=== PATIENT | male | born 1975 | race Two or more races ===

== ENCOUNTER → 2024-11-02 | Outpatient (CLI) | payer MEDICAID, SELFPAY ==
--- NOTE | 2024-11-02 14:00 | XR_ITS ---
Examination: CT lower extremities bilateral, without contrast. 2-D sagittal reconstructions. 2-D coronal reconstructions. 3-D reconstructions. Date and time of exam:November 02, 2024 1634 hours INDICATIONS: Right hip osteoarthritis and pain 5 years CTDI: vol (mGy):10.1 DLP: (mGycm):349 Technique: Multiple 1.25 mm axial sections of the bilateral lower extremities without intravenous contrast have been obtained. 2-D sagittal and coronal reconstructions have been obtained. 3-D reconstructions have been obtained. Low dose protocols were performed. One or more of the following dose reduction techniques were used; automated exposure control, adjustment of the mA and/or KV according to patient size, use of iterative reconstruction technique. Findings: Mild osteopenia Total left hip arthroplasty with satisfactory alignment Advanced right hip osteoarthritis with subarticular cyst formation right femoral head Moderate narrowing medial joint spaces greater on the left Chronic mild lateral subluxation patella bilaterally Moderate narrowing left lateral patellofemoral joint IMPRESSION: Advanced right hip osteoarthritis with subarticular cyst formation right femoral head, avascular necrosis right femoral head not excluded
== END | disposition home or self-care (01) ==
PROVIDERS: Referring Provider Orthopaedic Surgery Adult Reconstructive Orthopaedic Surgery; Visit Provider Orthopaedic Surgery Adult Reconstructive Orthopaedic Surgery
DX: M16.11 Unilateral primary osteoarthritis, right hip (principal); M25.851 Other specified joint disorders, right hip
CPT/HCPCS: 72192; 73700

== ENCOUNTER 2024-11-03 09:16 | Outpatient (AMB) | payer MEDICAID, SELFPAY ==
--- NOTE | 2024-11-03 09:26 | PD.ORTHCLVIS ---
Vital signs 11/03/24 09:28 Height 1.78 m Height Method Stated Weight 112.689 kg Weight Measurement Method Standing Scale BMI 35.5 BP 160/101 H Blood Pressure Source Automatic Cuff Blood Pressure Location Left Upper Arm Position Sitting Respiration 19 Pulse 104 H Pulse Source Monitor Temp 96.9 F Temp Source Temporal Artery Scan Pulse Oximetry (%) 90 L Oxygen Delivery Method Room Air Med/Allergies Allergies & Medications Allergies No Known Allergies Allergy (Verified 11/03/24 09:29) Medication Reconciliation ibuprofen 800 mg tablet 800 mg PO Q8HR PRN Pain 05/04/24 [History Confirmed 11/03/24] lisinopril 10 mg tablet 10 mg PO QDAY 05/04/24 [History Confirmed 11/03/24] simvastatin 20 mg tablet 20 mg PO DAILY 05/04/24 [History Confirmed 11/03/24] sitagliptin phosphate 50 mg-metformin 1,000 mg tablet (Janumet) 1 tab PO BID 05/04/24 [History Confirmed 11/03/24] acetaminophen 500 mg tablet (Acetaminophen Extra Strength) 1,000 mg (2 x 500 mg) PO Q6H PRN pain #90 tabs 05/06/24 [Rx Confirmed 11/03/24] aspirin 81 mg tablet,delayed release 81 mg PO BID #60 tabs 05/06/24 [Rx Confirmed 11/03/24] doxycycline hyclate 100 mg tablet 100 mg PO BID #14 tabs 05/06/24 [Rx Confirmed 11/03/24] gabapentin 300 mg capsule 300 mg PO .qhs #30 caps 05/06/24 [Rx Confirmed 11/03/24] oxycodone 5 mg tablet 5 mg PO Q6H PRN pain #28 tabs 05/06/24 [Rx Confirmed 11/03/24] sennosides 8.6 mg-docusate sodium 50 mg tablet (Senna-S) 1 tab-cap PO QDAY #30 tabs 05/06/24 [Rx Confirmed 11/03/24] Office Procedures GNS Level of Care Nursing/Assessment Patient Status: Established Patient Nursing Assessment/Reassesment: Medication Reconciliation, Update PMH in EMR and Vital Signs Coordination of Care: Complex Care and Chronic Disease 1-5, Education Complex Pt/Fam, Consent,records obtained, informed consent, Results/Orders obtained and Staff clarify orders Established Patient Charge Established Patient Point Assignment: 95 Established Patient Point Charge: EP Level 3 (80-115) MA Intake Visit Data Collection New Patient or Established: Established Patient (seen at [facility] within 3 years) Reason for Visit:: PRE OP RIGHT HIP REPLACEMENT Seen by Clinical Staff ONLY (RN/MA): No Crown Buffer Required: No PCP or OBGYN visit in last 3 months: Yes Hx Now: No Do You Feel Safe at Home: Yes Authorities Contacted: N/A Questionairres Past Medical History Past Medical History Have you ever been diagnosed with any of the following: Neurological Problems Seizures: No Cardiology Problems Hypercholesterolemia: Yes Congestive Heart Failure: No Hypertension: Yes Respiratory Problems Chronic Obstructive Pulmonary Disease (COPD): No Sleep Apnea: Yes (waiting on a Cpap) Smoking: No Smoking Cessation Counseling: No Smoking Exposure: No Tobacco Use: No Clubbing: No Exposure to Respiratory Irritants: No Intubation: No Stomache/Intestinal Problems Diverticulitis: Yes Obesity: Yes Genital/Urinary Problems Renal Disease: No Musculoskeletal Problems Arthritis: Yes Head,Eye,Nose,Throat Problems Cataracts: Yes (right) Endocrine Problems Diabetes Mellitus Type 1: No Diabetes Mellitus Type 2: Yes Other Problems Hospitalization: Yes (surgery colon resection) Shingles: No Blood Transfusions: No Blood Transfusion Reaction: No Anesthesia Reactions: No Clostridium Difficile: No Cancer: No Subjective Visit Visit for: follow up visit (PRE OP) and hip (RIGHT) Immunization / Flu Flu Vaccine in the Last 12 Months: No Flu Vaccine Exclusion Criteria: No Exclusion Criteria Pain Pain level (0-10): 9 Pain duration: CONSTANT Pain location: inside (medial) Pain quality: aching Pain timing: night, increases with activity and stairs Associated signs & symptoms: other (specify) Ambulatory data Ambulatory device: none Treatments Improvement with previous injections: No Improvement with PT: No Improvement with NSAIDS: no Review of Systems Review of Systems: All systems negative unless otherwise noted in HPI.
[2024-11-03 09:28] VITALS: BP 160/101; PULSE 104; RESP 19; TEMP 36.1; O2SAT 90; BMI 35.5
--- NOTE | 2024-11-13 09:03 | ORTHONT_ITS ---
Patient Name: VANESSA OH Jr. : 1975 Subjective Subjective Brief History: left total hip replacement Narrative: Patient is doing well From his left total Hip replacement. He is doing well with the left side and also get his right side done. He is set up for surgery in 1 week Exam Additional findings Additional findings: NAD SILT+DP/PT +EHL/FHL/PF/DF Dressing C/D/I Is tender to palpation over the right hip. He has pain with logroll. Positive DP PT pulses. Leg lengths are equal Assessment & Plan Diagnosis (1) Status post left hip replacement: Status: Acute Assessment Additional comments: Patient is doing well Status post left total hip replacement. We will set him up for his right side in 4 weeks. He has minimal pain on the left. The right side is affecting his quality life and happiness. We will do this with a lateral approach The nature and purpose of the total hip replacement, alternative method(s) of treatment, the material risks involved, and the possibility of complications were fully explained to the patient. The patient does NOT have any of the following contraindications to DEX: - Active infection of the hip joint, OR - Active systemic bacteremia, OR - Active skin infection or open wound at surgical site, OR - Neuropathic arthritis, OR - Severe, rapidly progressive neurological disease, OR - Severe medical condition that makes risks of the surgery outweigh the potential benefit The patient was told the most common risks and complications associated with a total hip replacement include, but are not limited to: blood clots in the leg, fatal pulmonary embolism, dislocation of the prosthesis, intraoperative and postoperative fractures of the femur or acetabulum, infection, failure of the prosthesis or grafting materials, complications from anesthesia, reactions to blood transfusions, postoperative leg length inequality, instability of the hip replacement, nerve damage or injury, vascular injury, delayed wound healing, infection, other injury or even . In addition, there are risks associated with anesthesia given during this operation. Also, the patient was told that after undergoing a total hip replacement there may still be persistent pain or disability. The patient was informed that the success of this operation in part depends upon the mechanical devices which are going to be implanted and that these devices can fail or malfunction, and may need to be repaired or replaced and there are no guarantees as to the longevity of this device or its parts and that it or its parts could fail prematurely. The patient was also notified that during the course of surgery, there may be a need to use bone graft from donors, and that any bone graft used will be carefully screened for communicable diseases, including AIDS, hepatitis, Jose-Creutzfeldt, or other diseases, but despite the screening procedures, there is a small chance that they could contract one of these diseases. Finally, the patient was asked to follow completely and fully with all advice and recommended treatments, and that recovery and ultimate outcome are affected by their compliance with recommended treatment. We discussed the risks, benefits and treatment alternatives, and the patient is interested in proceeding with surgery. We will try to set this up as expeditiously as possible. Documentation for date of: 11/03/24 SHARMILA
== END 2024-11-03 09:42 | disposition home or self-care (01) ==
LOC: HODSRG 09:16
PROVIDERS: PCP Registered Nurse; Referring Provider Registered Nurse; Supervising Provider Orthopaedic Surgery Adult Reconstructive Orthopaedic Surgery; Visit Provider Orthopaedic Surgery Adult Reconstructive Orthopaedic Surgery
DX: Z96.642 Presence of left artificial hip joint (principal); M25.562 Pain in left knee
CPT/HCPCS: 99213; G0463

== ENCOUNTER 2024-11-12 11:53 | Inpatient (IN) | payer MEDICAID, SELFPAY ==
--- NOTE | 2024-11-03 09:42 | CONPN_ITS ---
Subjective Subjective Brief History: left total hip replacement Narrative: Patient is doing well From his left total Hip replacement. He is doing well with the left side and also get his right side done. He is set up for surgery in 1 week Exam Additional findings Additional findings: NAD SILT+DP/PT +EHL/FHL/PF/DF Dressing C/D/I Is tender to palpation over the right hip. He has pain with logroll. Positive DP PT pulses. Leg lengths are equal Assessment & Plan Diagnosis (1) Status post left hip replacement: Status: Acute Assessment Additional comments: Patient is doing well Status post left total hip replacement. We will set him up for his right side in 4 weeks. He has minimal pain on the left. The right side is affecting his quality life and happiness. We will do this with a later al approach The nature and purpose of the total hip replacement, alternative method(s) of treatment, the material risks involved, and the possibility of complications were fully explained to the patient. The patient does NOT have any of the following contraindications to DEX: - Active infection of the hip joint, OR - Active systemic bacteremia, OR - Active skin infection or open wound at surgical site, OR - Neuropathic arthritis, OR - Severe, rapidly progressive neurological disease, OR - Severe medical condition that makes risks of the surgery outweigh the potential benefit The patient was told the most common risks and complications associated with a total hip replacement include, but are not limited to: blood clots in the leg, fatal pulmonary embolism, dislocation of the prosthesis, intraoperative and postoperative fractures of the femur or acetabulum, infection, failure of the prosthesis or grafting materials, complications from anesthesia, reactions to blood transfusions, postoperative leg length inequality, instability of the hip replacement, nerve damage or injury, vascular injury, delayed wound healing, infection, other injury or even . In addition, there are risks associated with anesthesia given during this operation. Also, the patient was told that after undergoing a total hip replacement there may still be persistent pain or disability. The patient was informed that the success of this operation in part depends upon the mechanical devices which are going to be implanted and that these devices can fail or malfunction, and may need to be repaired or replaced and there are no guarantees as to the longevity of this device or its parts and that it or its parts could fail prematurely. The patient was also notified that during the course of surgery, there may be a need to use bone graft from donors, and that any bone graft used will be carefully screened for communicable diseases, including AIDS, hepatitis, Jose-Creutzfeldt, or other diseases, but despite the screening procedures, there is a small chance that they could contract one of these diseases. Finally, the patient was asked to follow completely and fully with all advice and recommended treatments, and that recovery and ultimate outcome are affected by their compliance with recommended treatment. We discussed the risks, benefits and treatment alternatives, and the patient is interested in proceeding with surgery. We will try to set this up as expeditiously as possible. Documentation for date of: 11/03/24
--- NOTE | 2024-11-03 09:42 | PD.SUROPNT ---
Date of Procedure 11/11/24 Pre Op Diagnosis right hip osteoarthritis Post Op Diagnosis right hip osteoarthritis Procedure right total hip replacement Findings full thickness cartilage loss and osteophytes Procedure Description Indications: The patient is a 49y.o. year-old with a longstanding history of right hip pain. After considering the patient's condition and the impact of their hip injury on the patient's quality of life and risks of nonoperative treatment, total hip replacement was offered as a reasonable option. Prior to the surgery I discussed the nature of the hip replacement surgery including alternatives to surgery and the purpose of, and indications for proceeding with surgery. I discussed that this surgery is a shared decision between the patient and the surgeon. Risks and benefits and alternatives of the procedure have been explained to the patient and their family. Anesthesia complications and risks include but are not limited to stroke, heart attack, and . The surgical risks include but are not limited to infection, instability/dislocation, bleeding, nerve and blood vessel injury, deep vein thrombosis, pulmonary embolus, stiffness, pain, scar, need for reoperation, leg length discrepancy, thigh numbness, weakness, and mechanical failure of the implant including loosening, metal complications, metal allergy, wear or breakage. I discussed the expected recovery from surgery and the importance of compliance with all our pre and post-operative recommendations in order to maximize the recovery. The patient/family understands the risks of loss of life, loss of limb and, loss of function and wishes to proceed. They understand they are at increased risk for infection given their history of smoking. A signed and witnessed consent was obtained and placed in the chart. Patient Positioning: The patient was placed in the lateral decubitus position on a standard table using a pegboard. An axillary role was placed. All extremities were padded to ensure adequate protection. A link catheter was aseptically inserted. Time Out: A timeout was performed prior to the procedure which verified the correct patient, positioning, operation to be performed, operative site, antibiotics, allergies, imaging, and any other concerns. All parties were in agreement. Procedure in detail: The operative site was cleaned and draped in the usual sterile fashion. A final timeout was performed with all parties in agreement. We first placed pins and an array in the pelvis above the ASIS. A modified anterolateral approach to the hip was utilized. A 16cm skin incision was made centered over the greater trochanter in line with the femur. This was taken down through skin and subcutaneous tissue using a 10 blade. Bleeding was controlled using electrocautery. The fascia was identified and split in line with the femur. The charnley retractor was then placed. The abductor insertion was identified and a split made in the anterior 1/3 of the tendon proximally. Retractors were placed and the gluteus minimus was visualized. A capsulotomy was made down to the femoral neck anterior to the minimus. A split was then made in the anterior 1/3 of the vastus lateralis. A retractor was then placed anterior to the femoral shaft, the tendon was tagged with #1 ethibond sutures and a U-shaped split was made in the anterior 1/3 of the abductor tendon being careful to leave enough tendon to re-attach. The hip was then gently externally rotated as the anterior tissues were taken down with the tendon and capsule as one sleeve. Once the anterior tissue had been release off of bone a bone hook was placed and the hip was gently dislocated. Retractors were placed around the femoral neck and the femoral neck osteotomy was then made to freshen up the cut. The femoral head removed. The leg was then placed in extension and retractors were placed anterior and posterior to the acetabulum. The inferior capsule was release to improved visualization and the labrum and osteophytes around the acetabulum were removed. The acetabulum was then reamed to bleeding bone with adequate wall coverage using the robot. A Screw was then placed followed by the liner which was impacted and confirmed to be seated. We then turned our attention to the femur. The leg was brought into external rotation and the femur was exposed. A canal finder was used followed by a box osteotomy and the femur was broached sequentially. The trial stem was then left in and the hip was trialed using various neck offsets and head sizes until the appropriate size was found based on leg length, stability. Once we were satisfied with the construct a cross-table AP pelvis radiograph was obtained to confirm appropriate positioning and sizing. The hip was then dislocated and the trials were then removed and the final stem impacted into placed. The hip was then again trialed and the appropriate head size identified. The bergman taper was then cleaned and dried and the final head impact into place and tested. The acetabulum was irrigated and confirmed to be free of debris. The hip was then reduced and taken through range of motion. The hip was stable in abduction and external rotation, adduction and external rotation, flexion past 90 degrees and internal rotation past 20 degrees. It did not sublux throughout range of motion and no impingement was detected. Leg lengths were appropriately restored based on preoperative leg lengths and intraoperative testing. . The hip was then copiously irrigated with dilute betadine followed by normal saline. The hip was then injected with the cocktail per protocol. All arrays and the femoral checkpoint was removed. The hip was the closed in layers. The abductor tendon was closed with #1 ethibond. The fascia was closed with 0 Vicryl followed by an 0 V-lock. . The deep layer was closed with 0-Vicryl and the subcutaneous layer by a 2-0 Vicryl. The subdermal layer was closed with a 3-0 monocryl. The skin was then cleaned and dried and steri-strips placed followed by a sterile dressing. The drapes were then taken down and the patient was placed supine. Leg lengths were confirmed to be appropriate and the patient's lower extremities were warm and well perfused with brisk capillary refill and palpable pulses. The patient was then awoken, transferred to the [facility] and taken to the PACU in stable condition. They tolerated the procedure well. The patient's family/caregiviers were made aware of their condition. Postoperative plan Activity: WBAT, no hip precautions , no active hip abduction DVT Prophylaxis: aspirin 81mg BID Antibiotics: Standard postoperative antibiotics x 24 hours Implants: [place] 56 cup, 4 HI insignia, 1 screw, standard liner, 40+4 head Anesthesia GETA Implants ernst Pathology / specimen None Pathology comment: none Estimated Blood Loss 150 Disposition observation Surgeon Josef Riddle MD Surgical Staff Operation Date: 11/11/24 07:30 <No data on this case meets the specified criteria>
[2024-11-10 07:33] VITALS: BMI 36.1
[2024-11-10 08:43] LABS: Anion Gap 9 (7-16); Blood Urea Nitrogen 15 mg/dL (9-23); Carbon Dioxide 26.3 mMol/L (20.0-31.0); Chloride 101 mMol/L (98-107); Creatinine (Component) 0.8 mg/dL (0.6-1.3); Potassium 4.3 mMol/L (3.4-5.1); Sodium 136 mMol/L (136-145)
[2024-11-10 08:44] LABS: Alanine Aminotransferase 25 U/L (10-49); Albumin, Serum 4.9 gm/dL (3.5-5.0); Albumin/Globulin Ratio 1.6 (1.2-2.2); Alkaline Phosphatase 122 U/L (46-116); Aspartate Amino Transferase 16 U/L (0-34); BUN/Creatinine Ratio 19 Ratio (12-20); Bilirubin,Total 0.3 mg/dL (0.3-1.2); Calcium 9.8 mg/dL (8.3-10.6); Calcium (Corrected) 9.8 mg/dL (8.5-10.1); Estimated Creatinine Clearance 138.8 mL/min (>60); Glucose 167 mg/dL (74-106); Osmolality,Calculated 276 (275-295); Total Protein 7.9 gm/dL (5.7-8.2); eGFR > 60 See Note
[2024-11-10 09:03] LABS: Basophils # (Auto) 0.1 Thou/mm3 (0.0-0.2); Basophils % (Auto) 1 % (0-2.5); Eosinophils # (Auto) 0.3 Thou/mm3 (0.0-0.5); Eosinophils % (Auto) 2 % (0-10); Hematocrit 51.6 % (41.0-53.0); Hemoglobin 17.1 g/dL (13.5-16.0); Immature Granulocytes % (Auto) 1 % (0-0); Immature Granulocytes Auto 0.06 Thou/mm3 (0.00-0.00); Lymphocytes # (Auto) 2.8 Thou/mm3 (1.0-4.8); Lymphocytes % (Auto) 26 % (10-50); Mean Corpuscular HGB Conc 33.1 g/dl (31.0-37.0); Mean Corpuscular Hemoglobin 27.8 pg (25.0-35.0); Mean Corpuscular Volume 84 fL (80-100); Monocytes # (Auto) 0.8 Thou/mm3 (0.0-0.8); Monocytes % (Auto) 7 % (0-12); Neutrophils % (Auto) 64 % (37-80); Nucleated Red Blood Cell % 0 /100 WBC (0); Platelet Count 363 Thou/mm3 (140-440); RDW Standard Deviation 41.2 fL (35.1-43.9); Red Blood Count 6.15 Miln/mm3 (4.50-5.90)
[2024-11-10 09:10] LABS: Partial Thromboplastin Time 29.3 Seconds (22.0-36.0); Prothrombin Time 10.8 Seconds (9.0-12.2)
--- NOTE | 2024-11-10 14:11 | SUR.PREOP ---
WBC 11.0, Dr Riddle notified and ok to proceed with surgery.
[2024-11-11] VITALS (16 sets, daily range): BP systolic 107–149; BP diastolic 71–91; PULSE 72–105; RESP 12–20; TEMP 36.1–36.8; O2SAT 92–100; BMI 35.6
--- NOTE | 2024-11-11 06:52 | XR_ITS ---
Examination: Right hip single view TECHNIQUE: AP right hip crosstable lateral single view Exam date and time: November 11, 2024 0933 hours INDICATIONS: Total right hip arthroplasty. Satisfactory alignment No fracture IMPRESSION: Total right hip arthroplasty with satisfactory alignment
[2024-11-11] MEDS: ACETAMINOPHEN 325 MG TABLET 650 MG PO (07:24)
[2024-11-11] MEDS: PREGABALIN 75 MG CAPSULE PO (07:24)
[2024-11-11] MEDS: MELOXICAM 7.5 MG TABLET PO ×2 (07:24→20:55)
[2024-11-11] MEDS: RINGERS LACTATED 1000 ML 1,000 ML 20 ML IV (07:25)
--- NOTE | 2024-11-11 10:18 | XR_ITS ---
Examination: AP pelvis single view Technique one AP portable supine pelvis single view Exam date and time: November 11, 2024 10:59 AM INDICATIONS: Postop right hip replacement FINDINGS: Total right hip arthroplasty. Satisfactory alignment Total left hip arthroplasty with satisfactory alignment No fracture IMPRESSION: Total right hip arthroplasty with satisfactory alignment
--- NOTE | 2024-11-11 10:40 | SUR.PHASEI ---
1040 Patient arrived to recovery resting comfortably in bed, sleeping and able to arouse with verbal prompting, then falls back asleep, on oxygen 4L via oxy mask, breathing unlabored, vital signs stable, denies pain, dressing intact to right hip; prineo, telfa, abd, medipore tape, no bleeding noted, bilateral dorsalis pedis pulses present when palpated, patient has good circulation to right lower extremity; skin color normal for patient and warm to touch, lung sounds clear upon auscultation, report received from Dr. Esteves and Syed TREJO
--- NOTE | 2024-11-11 11:02 | SUR.PHASEI ---
1102 XRAY complete per MD order
--- NOTE | 2024-11-11 11:50 | SUR.PHASEII ---
patient at bedside quickly visiting her , and states she had to go back to work, will update with changes or when her get a medsurg room
--- NOTE | 2024-11-11 12:02 | SUR.PHASEII ---
patient sitting up eating his lunch tray
[2024-11-11] MEDS: ACETAMINOPHEN 500 MG TABLET 1000 MG PO ×2 (12:06→18:07)
--- NOTE | 2024-11-11 13:32 | SUR.PHASEII ---
1317 Report given to Ivory TREJO, patient meets discharge criteria from recovery, awake and talking with staff, breathing unlabored, vital signs stable, denies pain, dressing intact; no bleeding noted, denies nausea. 1330 Patients called to notify of med-surg room [id number], states she would come see him soon. 1332 Patient transported via bed to room 372 without incident, patient has call light in reach and began eating the rest of his lunch tray when he arrived.
[2024-11-11] MEDS: ceFAZolin/D5W 2 GM IV 2 GM/100 ML BAG IV (17:10)
[2024-11-11] MEDS: ASPIRIN EC 81 MG TABEC PO (20:56)
--- NOTE | 2024-11-11 22:44 | PC.NURSE ---
called RT notified re pt uses cpap at home but not available with pt at this time. Pt lives in [place], [place]. Was on 5L/min via oxymask right now but per pt needs more O2. rn will call Dr. Riddle for cpap orders.
[2024-11-12] VITALS (9 sets, daily range): BP systolic 120–143; BP diastolic 76–96; PULSE 73–116; RESP 16–96; TEMP 36.2–37.5; O2SAT 95–98; BMI 13.0
[2024-11-12] MEDS: ceFAZolin/D5W 2 GM IV 2 GM/100 ML BAG IV ×3 (00:23→15:50)
[2024-11-12] MEDS: ACETAMINOPHEN 500 MG TABLET 1000 MG PO ×3 (00:27→17:04)
[2024-11-12] MEDS: oxyCODONE HCL 5 MG IR TAB PO (06:39)
[2024-11-12] MEDS: ASPIRIN EC 81 MG TABEC PO ×2 (08:21→20:19)
[2024-11-12] MEDS: PANTOPRAZOLE INJ 40 MG VIAL IV (08:21)
--- NOTE | 2024-11-12 13:38 | CHAP ---
10:30 AM Visited by spiritual care volunteer Provided prayer for Patient.
--- NOTE | 2024-11-12 15:55 | PC.SS ---
SS met with patient regarding his d/c plan. Pt is alert/oriented. Pt was admitted for RT HIP [id number]. Pt confirmed demographic and contact information is correct on facesheet. Pt resides with and both parents. Prior to being hospitalized pt ambulated independently without assistance or DME. Pt was also ok with all ADLs. Pt states he has a front wheel walker at home. Patient?s pharmacy of choice is [facility] in [place]. Pt named his , medical decision maker if unable. Patient?s choice is to return home upon d/c. D/C plan: Return home Next of Kin: , phone# [phone] PCP: Dr. Arelis Stafford from [facility] in [place] Address: Correct on facesheet
--- NOTE | 2024-11-12 16:21 | PC.SS ---
SS was informed by bedside nurseMary pt is not discharging today. Pt is on IV antibiotic and controlling his pain.
--- NOTE | 2024-11-12 19:38 | PD.ORTHPN ---
Subjective Subjective Brief History: left total hip replacement Narrative: Patient doing well. His heart rate is in low 100s similar to last surgery. Exam Vital Signs Temp Pulse Resp BP Pulse Ox O2 Del Method O2 Flow Rate 97.2 F 98 18 128/83 98 Room Air 4 11/12/24 16:00 11/12/24 16:00 11/12/24 16:00 11/12/24 16:00 11/12/24 16:00 11/12/24 16:00 11/11/24 20:00 FiO2 30 11/12/24 01:50 Additional findings Additional findings: c Objective - Ortho Labs 11/10/24 07:57 11/10/24 07:57 Assessment & Plan Diagnosis (1) History of total right hip arthroplasty: Status: Acute Assessment Additional comments: Patient is a 49yo male s/p R DEX. His HR is in low 100s and we will thus continue to monitor him. He is not safe for discharge currently. We will work on his pain control. His heart rate was during last surgery as well. - dvt ppx with aspirin - pain control - pt/ot
[2024-11-12] MEDS: MELOXICAM 7.5 MG TABLET PO (20:19)
[2024-11-13] VITALS: BP 134/83; PULSE 102; RESP 17; TEMP 36.3; O2SAT 98
[2024-11-13] MEDS: ceFAZolin/D5W 2 GM IV 2 GM/100 ML BAG IV ×2 (00:49→08:18)
[2024-11-13] MEDS: ACETAMINOPHEN 500 MG TABLET 1000 MG PO ×2 (00:49→05:06)
[2024-11-13 04:00] VITALS: BP 126/76; PULSE 98; RESP 17; TEMP 36.8; O2SAT 99
[2024-11-13 08:00] VITALS: BP 123/83; PULSE 105; RESP 18; TEMP 36.5; O2SAT 93
[2024-11-13] MEDS: PANTOPRAZOLE INJ 40 MG VIAL IV (08:18)
[2024-11-13] MEDS: ASPIRIN EC 81 MG TABEC PO (08:18)
--- NOTE | 2024-11-13 09:11 | PC.SS ---
Follow up note: Pt is working with PT. Pt is on IV antibiotic. Pt will return home upon dc.
[2024-11-13 09:42] LABS: Basophils # (Auto) 0.1 Thou/mm3 (0.0-0.2); Basophils % (Auto) 1 % (0-2.5); Eosinophils # (Auto) 0.1 Thou/mm3 (0.0-0.5); Eosinophils % (Auto) 1 % (0-10); Hematocrit 33.9 % (41.0-53.0); Hemoglobin 11.5 g/dL (13.5-16.0); Immature Granulocytes % (Auto) 1 % (0-0); Immature Granulocytes Auto 0.08 Thou/mm3 (0.00-0.00); Lymphocytes # (Auto) 2.5 Thou/mm3 (1.0-4.8); Lymphocytes % (Auto) 18 % (10-50); Mean Corpuscular HGB Conc 33.9 g/dl (31.0-37.0); Mean Corpuscular Hemoglobin 28.6 pg (25.0-35.0); Mean Corpuscular Volume 84 fL (80-100); Monocytes # (Auto) 1.2 Thou/mm3 (0.0-0.8); Monocytes % (Auto) 8 % (0-12); Neutrophils # (Auto) 9.8 Thou/mm3 (1.8-7.7); Neutrophils % (Auto) 71 % (37-80); Nucleated Red Blood Cell % 0 /100 WBC (0); Platelet Count 260 Thou/mm3 (140-440); RDW Standard Deviation 42.6 fL (35.1-43.9); Red Blood Count 4.02 Miln/mm3 (4.50-5.90); White Blood Count 13.8 Thou/mm3 (3.8-10.6)
[2024-11-13 10:53] VITALS: PULSE 100; RESP 18; RESP 95
--- NOTE | 2024-11-13 11:20 | CHAP ---
Patient was visited by the Spiritual Care Volunteer who prayed for them. (Volunteer was in the hospital from 10:10-11:20).
[2024-11-13 12:00] VITALS: BP 130/86; PULSE 109; RESP 18; TEMP 36.2; O2SAT 96
== END 2024-11-13 13:25 | disposition home or self-care (01) | DRG 324 ==
LOC: S2EX 13:36 → S3SX 13:36
PROVIDERS: Anesthesiology; Admitting Provider Orthopaedic Surgery Adult Reconstructive Orthopaedic Surgery; PCP Registered Nurse; Referring Provider Orthopaedic Surgery Adult Reconstructive Orthopaedic Surgery; Visit Provider Orthopaedic Surgery Adult Reconstructive Orthopaedic Surgery
PROC: 0SR90JZ Replacement of Right Hip Joint with Synthetic Substitute, Open Approach (ICD-10-PCS; CPT 27130; principal; 2024-11-11 08:00)
DX: M16.11 Unilateral primary osteoarthritis, right hip (principal); M25.751 Osteophyte, right hip
CPT/HCPCS: 36415; 72170; 73501; 80053; 85025; 85610; 85730; 87081; 94660; 97162; A4217; A4649; C1713; C1776; J0689; J0690; J1100; J1885; J2250; J2405; J2470; J2704; J3010; J3490; J7030; J7120; J7999; A9270; J1920

== ENCOUNTER 2024-11-27 08:53 | Outpatient (AMB) | payer MEDICAID, SELFPAY ==
--- NOTE | 2024-11-27 09:12 | ORTHONT_ITS ---
Vital signs 11/27/24 09:13 Height 1.75 m Height Method Stated Weight 110.365 kg Weight Measurement Method Standing Scale BMI 36.0 BP 143/90 H Blood Pressure Source Automatic Cuff Blood Pressure Location Right Upper Arm Position Sitting Respiration 18 Pulse 116 H Pulse Source Monitor Temp 97.3 F Temp Source Temporal Artery Scan Pulse Oximetry (%) 95 Oxygen Delivery Method Room Air Med/Allergies Allergies & Medications Allergies No Known Allergies Allergy (Verified 11/27/24 09:13) Medication Reconciliation ibuprofen 800 mg tablet 800 mg PO Q8HR PRN Pain 05/04/24 [History Confirmed 0 11/27/24] lisinopril 10 mg tablet 10 mg PO QDAY 05/04/24 [History Confirmed 11/27/24] simvastatin 20 mg tablet 20 mg PO DAILY 05/04/24 [History Confirmed 11/27/24] sitagliptin phosphate 50 mg-metformin 1,000 mg tablet (Janumet) 1 tab PO BID 05/04/24 [History Confirmed 11/27/24] acetaminophen 500 mg tablet (Acetaminophen Extra Strength) 1,000 mg (2 x 500 mg) PO Q6H PRN pain #90 tabs 05/06/24 [Rx Confirmed 11/27/24] aspirin 81 mg tablet,delayed release 81 mg PO BID #60 tabs 05/06/24 [Rx Confirmed 11/27/24] doxycycline hyclate 100 mg tablet 100 mg PO BID #14 tabs 05/06/24 [Rx Confirmed 11/27/24] gabapentin 300 mg capsule 300 mg PO .qhs #30 caps 05/06/24 [Rx Confirmed 11/27/24] sennosides 8.6 mg-docusate sodium 50 mg tablet (Senna-S) 1 tab-cap PO QDAY #30 tabs 05/06/24 [Rx Confirmed 11/27/24] metformin 1,000 mg tablet 1,000 mg PO BID 11/10/24 [History Confirmed 11/27/24] semaglutide 1 mg/dose (4 mg/3 mL) subcutaneous pen injector (Ozempic) 1 mg subcut QWEEK 11/10/24 [History Confirmed 11/27/24] acetaminophen 500 mg tablet (Acetaminophen Extra Strength) 1,000 mg (2 x 500 mg) PO Q6H PRN pain #90 tabs 11/13/24 [Rx Confirmed 11/27/24] aspirin 81 mg tablet,delayed release 81 mg PO BID #60 tabs 11/13/24 [Rx Confirmed 11/27/24] doxycycline hyclate 100 mg tablet 100 mg PO BID #14 tabs 11/13/24 [Rx Confirmed 11/27/24] gabapentin 300 mg capsule 300 mg PO .qhs #30 caps 11/13/24 [Rx Confirmed 0 11/27/24] oxycodone 5 mg tablet 5 mg PO Q6H PRN pain #28 tabs 11/13/24 [Rx Confirmed 11/27/24] sennosides 8.6 mg-docusate sodium 50 mg tablet (Senna-S) 1 tab-cap PO QDAY #30 tabs 11/13/24 [Rx Confirmed 11/27/24] Exam Exam Patient is in no acute distress and is cooperative with the examination today. Patient has a normal mood and affect. Breathing is nonlabored. In no respiratory distress. Bilateral extremities were evaluated and demonstrates sensation intact to light touch. Palpable pedal pulses are present. No significant edema is present. Bilateral hip incisions are clean dry and intact. The leg lengths are equal Assessment and Plan Problem List (1) Status post left hip replacement: Status: Acute Plan: Patient is doing well status post left total hip replacement. He recently had his right hip replaced as well 2 weeks ago and is doing well. Plan The patient is doing well and we will see him back in 4 weeks for routine follow-up Office Procedures GNS Level of Care Nursing/Assessment Patient Status: Established Patient Nursing Assessment/Reassesment: Medication Reconciliation, Update PMH in EMR and Vital Signs Coordination of Care: Complex Care and Chronic Disease 1-5, Education Complex Pt/Fam, Consent,records obtained, informed consent, Results/Orders obtained and Staff clarify orders Established Patient Charge Established Patient Point Assignment: 95 Established Patient Point Charge: EP Level 3 (80-115) MA Intake Visit Data Collection New Patient or Established: Established Patient (seen at [facility] within 3 years) Seen by Clinical Staff ONLY (RN/MA): No Verbal consent obtained for Telemed visit?: No Manager Strategic Development Required: No PCP or OBGYN visit in last 3 months: Yes Hx Now: No Do You Feel Safe at Home: Yes Authorities Contacted: N/A Questionairres Past Medical History Past Medical History Have you ever been diagnosed with any of the following: Neurological Problems Seizures: No Cardiology Problems Hypercholesterolemia: Yes Congestive Heart Failure: No Hypertension: Yes Respiratory Problems Chronic Obstructive Pulmonary Disease (COPD): No Sleep Apnea: Yes (Cpap) Smoking: No Smoking Cessation Counseling: No Smoking Exposure: No Tobacco Use: No Clubbing: No Exposure to Respiratory Irritants: No Intubation: No Stomache/Intestinal Problems Diverticulitis: Yes Obesity: Yes Genital/Urinary Problems Renal Disease: No Musculoskeletal Problems Arthritis: Yes Head,Eye,Nose,Throat Problems Cataracts: Yes (right) Endocrine Problems Diabetes Mellitus Type 1: No Diabetes Mellitus Type 2: Yes Other Problems Hospitalization: Yes (surgery colon resection) Shingles: No Blood Transfusions: No Blood Transfusion Reaction: No Anesthesia Reactions: No Chicken Pox: Yes Clostridium Difficile: No Cancer: No Subjective Visit Visit for: follow up visit Immunization / Flu Flu Vaccine in the Last 12 Months: No Flu Vaccine Exclusion Criteria: No Exclusion Criteria History of Present Illness Chief complaint: RIGHT HIP POST OP Date of injury / onset of symptoms: 11/11/2024 Bg is a pleasant 49-year-old male who She has had his right total hip replaced 2 weeks ago. This was done in a staged fashion and is very happy. He is not using any assistive device right now Pain Pain level (0-10): 8 Pain duration: COMES AND GOES Pain location: inside (medial), outside (lateral), anterior and posterior Pain quality: sharp, dull and aching Pain timing: increases with activity Associated signs & symptoms: numbness Ambulatory data Ambulatory device: none Treatments Improvement with previous injections: No Improvement with PT: No Improvement with NSAIDS: no Review of Systems Review of Systems: All systems negative unless otherwise noted in HPI.
[2024-11-27 09:13] VITALS: BP 143/90; PULSE 116; RESP 18; TEMP 36.3; O2SAT 95; BMI 36.0
== END 2024-11-27 09:21 | disposition home or self-care (01) ==
LOC: HODSRG 08:53
PROVIDERS: Supervising Provider Orthopaedic Surgery Adult Reconstructive Orthopaedic Surgery; Visit Provider Orthopaedic Surgery Adult Reconstructive Orthopaedic Surgery
DX: Z96.642 Presence of left artificial hip joint (principal); I10 Essential (primary) hypertension; E78.00 Pure hypercholesterolemia, unspecified; G47.30 Sleep apnea, unspecified
CPT/HCPCS: 99213; G0463

== ENCOUNTER 2024-12-17 13:00 | Outpatient (RCR) | payer MEDICAID, SELFPAY ==
--- NOTE | 2024-11-30 15:13 | PT.OIERPT ---
PT OP Initial Eval Patient Information Outpatient Physical Therapy Treatment Date: 11/30/24 Visit Reasons: right hip surgery Medical Diagnosis: Z96.641 Treatment Dx #1: R hip pain Treatment Dx #2: Dec R hip strength Start of Care: 11/30/24 Date of Onset: 11/11/24 Smoking Status Smoking Status: Current some day smoker Cessation Counseling Provided: VANESSA was advised that quitting smoking is the single most important factor to protect the health of themselves and their family. Discussed the benefits of quitting smoking with patient. Encouraged patient to quit smoking and provided Cessation assistance materials and resources. Tobacco Use: Cigarette Years smoked: 30 Are you interested in quitting?: Yes Would you like additional Smoking Cessation Counseling?: Yes Initial Assessment Subjective: Pt is 49 yr old male s/p R DEX lateral approach almost 3 weeks ago presents ambulating with a FWW that he has been using due to R hip pain. He also had the L hip replaced last year. He is doing most ADL's himself but changing clothes he needs assist. PMH: HTN, high cholesterol, DM, allergies Pt goal: to walk normal again Objective: R hip ArOM: Flexion: 80 deg Abduction: 30 deg SLR: unable Gait: antalgic with FWW Scar: healing well Assessment: Pt presentation consistent with post op R DEX with weakness and inability to SLR in supine. Pt requires skilled therapy to meet goals and has good rehab potential. Short Term and Construction And Maintenance Inspector Goals 1. Ind with HEP 2. Improved SLR to at least 45 deg x10 3. Ambulate with symmetrical gait pattern for community distances Treatment Plan 1. Manual therapy ? 2. Therex ? 3. Modalities as indicated, moist heat, ice, estim Frequency and Duration: 2-3x a week for 6 weeks Certification Dates: 11/30/24 to 02/25/25 Procedure Charges OP PT Eval Mod Complex 30 minutes: Yes
--- NOTE | 2024-12-08 16:07 | PT.ODAYNRPT ---
PT Outpatient Daily Note OP Daily Note Outpatient Physical Therapy Treatment Date: 12/08/24 Visit Reasons: right hip surgery Subjective: Same as evaluation Objective: See F/S for therex Assessment: Moderate hip pain limits WB tolerance and SLR on R Plan: Continue per POC Length of Time (minutes) of Treatment: 30 Minutes Procedure Charges Therapeutic Exercise 30 minutes: Yes
--- NOTE | 2024-12-10 15:29 | PT.ODAYNRPT ---
PT Outpatient Daily Note OP Daily Note Outpatient Physical Therapy Treatment Date: 12/10/24 Visit Reasons: right hip surgery Subjective: Some R hip soreness after last visit Objective: See F/S for therex Assessment: Moderate hip pain limits WB tolerance and SLR on R Plan: Continue per POC Length of Time (minutes) of Treatment: 30 Minutes Procedure Charges Therapeutic Exercise 30 minutes: Yes
--- NOTE | 2024-12-15 15:34 | PTNOTE_ITS ---
PT Outpatient Daily Note OP Daily Note Outpatient Physical Therapy Treatment Date: 12/15/24 Visit Reasons: right hip surgery Subjective: * Pt reports hip has been sore and feels like he has a hard ball/know along incision. Objective: Please see flow sheet for ther ex list. Assessment: Performed light scar mobs and STM, pt tolerated with minimal complaint. Plan: Assess response to treatment. Length of Time (minutes) of Treatment: 30 Minutes Procedure Charges Therapeutic Exercise 30 minutes: Yes
--- NOTE | 2024-12-17 14:09 | PT.ODAYNRPT ---
PT Outpatient Daily Note OP Daily Note Outpatient Physical Therapy Treatment Date: 12/17/24 Visit Reasons: right hip surgery Subjective: Some R hip soreness after last visit Objective: See F/S for therex Assessment: Moderate hip pain limits WB tolerance and SLR on R. Pt able to extend stance time on R during gait with cues for more symmetrical pattern. Pain with single leg stance in parallel bars. Plan: Continue per POC Length of Time (minutes) of Treatment: 30 Minutes Procedure Charges Therapeutic Exercise 30 minutes: Yes
== END 2024-12-18 23:59 | disposition home or self-care (01) ==
LOC: CPTX 13:00
PROVIDERS: PCP Orthopaedic Surgery Adult Reconstructive Orthopaedic Surgery; Referring Provider Orthopaedic Surgery Adult Reconstructive Orthopaedic Surgery; Visit Provider Orthopaedic Surgery Adult Reconstructive Orthopaedic Surgery
DX: M25.551 Pain in right hip (principal); R53.1 Weakness; Z96.641 Presence of right artificial hip joint; Z71.6 Tobacco abuse counseling; F17.210 Nicotine dependence, cigarettes, uncomplicated; I10 Essential (primary) hypertension; E11.9 Type 2 diabetes mellitus without complications
CPT/HCPCS: 97110; 97162

== ENCOUNTER 2024-12-25 13:04 | Outpatient (AMB) | payer MEDICAID, SELFPAY ==
--- NOTE | 2024-12-25 13:14 | PD.ORTHCLVIS ---
Vital signs 12/25/24 13:15 Height 1.75 m Height Method Stated Weight 115.836 kg Weight Measurement Method Standing Scale BMI 37.8 BP 152/88 H Blood Pressure Source Automatic Cuff Blood Pressure Location Right Upper Arm Position Sitting Respiration 18 Pulse 110 H Pulse Source Monitor Temp 98.6 F Temp Source Temporal Artery Scan Pulse Oximetry (%) 95 Oxygen Delivery Method Room Air Med/Allergies Allergies & Medications Allergies No Known Allergies Allergy (Verified 12/25/24 13:16) Medication Reconciliation ibuprofen 800 mg tablet 800 mg PO Q8HR PRN Pain 05/04/24 [History Confirmed 12/25/24] lisinopril 10 mg tablet 10 mg PO QDAY 05/04/24 [History Confirmed 12/25/24] simvastatin 20 mg tablet 20 mg PO DAILY 05/04/24 [History Confirmed 12/25/24] sitagliptin phosphate 50 mg-metformin 1,000 mg tablet (Janumet) 1 tab PO BID 05/04/24 [History Confirmed 12/25/24] acetaminophen 500 mg tablet (Acetaminophen Extra Strength) 1,000 mg (2 x 500 mg) PO Q6H PRN pain #90 tabs 05/06/24 [Rx Confirmed 12/25/24] aspirin 81 mg tablet,delayed release 81 mg PO BID #60 tabs 05/06/24 [Rx Confirmed 12/25/24] doxycycline hyclate 100 mg tablet 100 mg PO BID #14 tabs 05/06/24 [Rx Confirmed 12/25/24] gabapentin 300 mg capsule 300 mg PO .qhs #30 caps 05/06/24 [Rx Confirmed 12/25/24] sennosides 8.6 mg-docusate sodium 50 mg tablet (Senna-S) 1 tab-cap PO QDAY #30 tabs 05/06/24 [Rx Confirmed 12/25/24] metformin 1,000 mg tablet 1,000 mg PO BID 11/10/24 [History Confirmed 12/25/24] semaglutide 1 mg/dose (4 mg/3 mL) subcutaneous pen injector (Ozempic) 1 mg subcut QWEEK 11/10/24 [History Confirmed 12/25/24] acetaminophen 500 mg tablet (Acetaminophen Extra Strength) 1,000 mg (2 x 500 mg) PO Q6H PRN pain #90 tabs 11/13/24 [Rx Confirmed 12/25/24] aspirin 81 mg tablet,delayed release 81 mg PO BID #60 tabs 11/13/24 [Rx Confirmed 12/25/24] doxycycline hyclate 100 mg tablet 100 mg PO BID #14 tabs 11/13/24 [Rx Confirmed 12/25/24] gabapentin 300 mg capsule 300 mg PO .qhs #30 caps 11/13/24 [Rx Confirmed 12/25/24] oxycodone 5 mg tablet 5 mg PO Q6H PRN pain #28 tabs 11/13/24 [Rx Confirmed 12/25/24] sennosides 8.6 mg-docusate sodium 50 mg tablet (Senna-S) 1 tab-cap PO QDAY #30 tabs 11/13/24 [Rx Confirmed 12/25/24] Exam Exam Patient is in no acute distress and is cooperative with the examination today. Patient has a normal mood and affect. Breathing is nonlabored. In no respiratory distress. Bilateral extremities were evaluated and demonstrates sensation intact to light touch. Palpable pedal pulses are present. No significant edema is present. Bilateral hip incisions are clean dry and intact. The leg lengths are equal Assessment and Plan Problem List (1) Status post left hip replacement: Status: Acute Plan: Patient is doing well status post left total hip replacement. He recently had his right hip replaced as well 6 weeks ago and is doing well. Plan The patient is doing well and we will see him back in 6 weeks for routine follow-up. He did not bring his cd and we told him to bring his xrays from [facility] at the next visit. Office Procedures GNS Level of Care Nursing/Assessment Patient Status: Established Patient Nursing Assessment/Reassesment: Medication Reconciliation, Update PMH in EMR and Vital Signs Coordination of Care: Complex Care and Chronic Disease 1-5, Education Complex Pt/Fam, Consent,records obtained, informed consent, Results/Orders obtained and Staff clarify orders Established Patient Charge Established Patient Point Assignment: 95 Established Patient Point Charge: EP Level 3 (80-115) MA Intake Visit Data Collection New Patient or Established: Established Patient (seen at [facility] within 3 years) Reason for Visit:: 6 WEEK F/U R HIP TKA Seen by Clinical Staff ONLY (RN/MA): No Verbal consent obtained for Telemed visit?: No Fire Investigator Required: No PCP or OBGYN visit in last 3 months: Yes Hx Now: No Do You Feel Safe at Home: Yes Authorities Contacted: N/A Questionairres Past Medical History Past Medical History Have you ever been diagnosed with any of the following: Neurological Problems Seizures: No Cardiology Problems Hypercholesterolemia: Yes Congestive Heart Failure: No Hypertension: Yes Respiratory Problems Chronic Obstructive Pulmonary Disease (COPD): No Sleep Apnea: Yes (Cpap) Smoking: No Smoking Cessation Counseling: No Smoking Exposure: No Tobacco Use: No Clubbing: No Exposure to Respiratory Irritants: No Intubation: No Stomache/Intestinal Problems Diverticulitis: Yes Obesity: Yes Genital/Urinary Problems Renal Disease: No Musculoskeletal Problems Arthritis: Yes Head,Eye,Nose,Throat Problems Cataracts: Yes (right) Endocrine Problems Diabetes Mellitus Type 1: No Diabetes Mellitus Type 2: Yes Other Problems Hospitalization: Yes (surgery colon resection) Shingles: No Blood Transfusions: No Blood Transfusion Reaction: No Anesthesia Reactions: No Chicken Pox: Yes Clostridium Difficile: No Cancer: No Subjective Visit Visit for: follow up visit and hip Immunization / Flu Flu Vaccine in the Last 12 Months: No Flu Vaccine Exclusion Criteria: No Exclusion Criteria History of Present Illness Chief complaint: RIGHT HIP POST OP Date of injury / onset of symptoms: 11/11/2024 Bg is a pleasant 49-year-old male who She has had his right total hip replaced 6 weeks ago. This was done in a staged fashion and is very happy. He is not using any assistive device right now. He reports that he feels great and is still working with therapy. Pain Pain level (0-10): 0 Pain duration: COMES AND GOES Pain location: inside (medial), outside (lateral), anterior and posterior Pain quality: sharp, dull and aching Pain timing: increases with activity Associated signs & symptoms: numbness Ambulatory data Ambulatory device: none Treatments Improvement with previous injections: No Improvement with PT: No Improvement with NSAIDS: no Review of Systems Review of Systems: All systems negative unless otherwise noted in HPI.
[2024-12-25 13:15] VITALS: BP 152/88; PULSE 110; RESP 18; TEMP 37; O2SAT 95; BMI 37.8
== END 2024-12-25 13:18 | disposition home or self-care (01) ==
LOC: HODSRG 13:04
PROVIDERS: Supervising Provider Orthopaedic Surgery Adult Reconstructive Orthopaedic Surgery; Visit Provider Orthopaedic Surgery Adult Reconstructive Orthopaedic Surgery
DX: Z47.1 Aftercare following joint replacement surgery (principal); Z96.643 Presence of artificial hip joint, bilateral
CPT/HCPCS: 99213; G0463

== ENCOUNTER 2025-01-15 14:00 | Outpatient (RCR) | payer MEDICAID, SELFPAY ==
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
--- NOTE | 2024-12-24 14:42 | PT.ODAYNRPT ---
PT Outpatient Daily Note OP Daily Note Outpatient Physical Therapy Treatment Date: 12/24/24 Visit Reasons: right hip surgery Subjective: Pt reports R hip is sore and feels like a knot where the incision is. Objective: Please see flow sheet for ther ex list. Assessment: Performed light scar mobs to accommodate for c/o knot sensation, pt tolerates well and c/o some pain relief. Plan: Continue with pOC. Length of Time (minutes) of Treatment: 30 Minutes Procedure Charges Therapeutic Exercise 30 minutes: Yes
--- NOTE | 2024-12-30 14:44 | PT.ODAYNRPT ---
PT Outpatient Daily Note OP Daily Note Outpatient Physical Therapy Treatment Date: 12/30/24 Visit Reasons: right hip surgery Subjective: Pt reports R hip is feeling better is not as sore. Pt mentioned that he wants to start to go to the gym. Objective: Please see flow sheet for ther ex list. Assessment: Pt verbalized desire to start going to the gym, pt educated on avoiding heavy weight or weighted squat/lunges due to post op timeline. Worked on squats and lunging mechanics, pt favors L hip verbal cues and demonstration to correct. Plan: Continue with POC. Length of Time (minutes) of Treatment: 30 Minutes Procedure Charges Therapeutic Exercise 30 minutes: Yes
--- NOTE | 2025-01-07 14:06 | PT.ODAYNRPT ---
PT Outpatient Daily Note OP Daily Note Outpatient Physical Therapy Treatment Date: 01/07/25 Visit Reasons: right hip surgery Subjective: Pt reports R hip is doing better, had follow up with surgeon about a week ago and surgeon content with current progress. Objective: Please see flow sheet for ther ex list. Assessment: Pt demonstrates improved lunge mechanics, minimal excessive anterior translation but corrects with cues. Plan: Continue with pOC. Length of Time (minutes) of Treatment: 30 Minutes Procedure Charges Therapeutic Exercise 30 minutes: Yes
--- NOTE | 2025-01-11 14:54 | PT.ODAYNRPT ---
PT Outpatient Daily Note OP Daily Note Outpatient Physical Therapy Treatment Date: 01/11/25 Visit Reasons: right hip surgery Subjective: Pt reports that R hip is progressing, has less pain. Objective: Please see flow sheet for ther ex list. Assessment: Pt able to perform step up exercise today with no EXHIBITS COORDINATOR indicating progress. Plan: Continue with POC. Length of Time (minutes) of Treatment: 30 Minutes Procedure Charges Therapeutic Exercise 30 minutes: Yes
--- NOTE | 2025-01-15 15:11 | PT.ODAYNRPT ---
PT Outpatient Daily Note OP Daily Note Outpatient Physical Therapy Treatment Date: 01/15/25 Visit Reasons: right hip surgery Subjective: pt reports progress with hip, has been working out with son. Objective: Please see flow sheet for ther ex list. Assessment: Pt ambulating with increase stride length normalizing gait. Progressing strengthening as per post op protocol. Plan: Continue with pOC. Length of Time (minutes) of Treatment: 30 Minutes Procedure Charges Therapeutic Exercise 30 minutes: Yes
== END 2025-01-18 23:59 | disposition home or self-care (01) ==
LOC: CPTX 14:00
PROVIDERS: PCP Orthopaedic Surgery Adult Reconstructive Orthopaedic Surgery; Referring Provider Orthopaedic Surgery Adult Reconstructive Orthopaedic Surgery; Visit Provider Orthopaedic Surgery Adult Reconstructive Orthopaedic Surgery
DX: M25.551 Pain in right hip (principal); R53.1 Weakness; Z96.641 Presence of right artificial hip joint; I10 Essential (primary) hypertension; E11.9 Type 2 diabetes mellitus without complications
CPT/HCPCS: 97110

== ENCOUNTER 2025-02-03 14:00 | Outpatient (RCR) | payer MEDICAID, SELFPAY ==
--- NOTE | 2025-01-19 15:22 | PT.ODAYNRPT ---
PT Outpatient Daily Note OP Daily Note Outpatient Physical Therapy Treatment Date: 01/19/25 Visit Reasons: RIGHT HIP SURGERY Subjective: Pt reports R hip is doing better. Objective: Please see flow sheet for ther ex list. Assessment: Pt demonstrates improved control with descending steps during exercise indicated by decrease LEADITE WORKER. Plan: Continue with pOC. Length of Time (minutes) of Treatment: 30 Minutes Procedure Charges Therapeutic Exercise 30 minutes: Yes
--- NOTE | 2025-01-21 14:30 | PT.ODAYNRPT ---
PT Outpatient Daily Note OP Daily Note Outpatient Physical Therapy Treatment Date: 01/21/25 Visit Reasons: RIGHT HIP SURGERY Subjective: Pt reports hip is doing better but strength and mobility is not where he would like. Objective: Please see flow sheet for ther ex list. Assessment: Pt demonstrates hip abductor tightness, pt instructed on active hip abduction pt compensates with trunk lateral flexion corrects post cues. Plan: Continue with pOC. Length of Time (minutes) of Treatment: 30 Minutes Procedure Charges Therapeutic Exercise 30 minutes: Yes
--- NOTE | 2025-02-01 18:06 | PT.ODS1RPT ---
PT OP Progress/Discharge Note Date of Service: 02/01/25 Progress Note/DC Note Progress Note/Discharge Note: DC Note Patient Information Visit Reasons: RIGHT HIP SURGERY Service Continue Service or Discharge: Discharge Discharge Date: 02/01/25 Status Assessment: Pt attended the initial evaluation and 12 Rx visits and then no showed on 01/28 and 02/01/25, which is not in compliance with attendance policy. Pt?s attendance is not consistent enough to make progress with goals. Thank you for your referrals. Plan: D/C
--- NOTE | 2025-02-03 14:57 | PT.ODS1RPT ---
PT OP Progress/Discharge Note Date of Service: 02/03/25 Progress Note/DC Note Progress Note/Discharge Note: DC Note Patient Information Visit Reasons: RIGHT HIP SURGERY Service Continue Service or Discharge: Discharge Discharge Date: 02/03/25 Status Subjective: Pt says he is going to the gym and walking about a mile for exercise and the R hip feels much stronger. He is prepared to D/C with home program. Objective: R hip AROM: Strength: Flexion: 100 deg 4+/5 Abduction: full 4+/5 SLR: 45 deg x10 Gait: almost symmetrical with less WB tolerance on R LE Assessment: Pt has attended 13 Rx sessions with good progress to meet therapy goals. He can SLR to 45 deg x10 reps and ambulate community distances. He was given theraband and HEP. Plan: D/C with HEP Procedure Charges Therapeutic Exercise 30 minutes: Yes
== END 2025-02-17 23:59 | disposition home or self-care (01) ==
LOC: CPTX 14:00
PROVIDERS: PCP Orthopaedic Surgery Adult Reconstructive Orthopaedic Surgery; Referring Provider Orthopaedic Surgery Adult Reconstructive Orthopaedic Surgery; Visit Provider Orthopaedic Surgery Adult Reconstructive Orthopaedic Surgery
DX: M25.551 Pain in right hip (principal); R53.1 Weakness; Z96.641 Presence of right artificial hip joint; I10 Essential (primary) hypertension; E11.9 Type 2 diabetes mellitus without complications
CPT/HCPCS: 97110

== ENCOUNTER 2025-03-18 14:24 | Outpatient (AMB) | payer MEDICAID, SELFPAY ==
[2025-03-18 14:45] VITALS: BP 143/89; PULSE 109; RESP 17; TEMP 36.7; O2SAT 95; BMI 37.0
--- NOTE | 2025-03-18 14:45 | ORTHONT_ITS ---
Vital signs 03/18/25 14:45 Height 1.75 m Height Method Stated Weight 113.398 kg Weight Measurement Method Standing Scale BMI 37.0 BP 143/89 H Blood Pressure Source Automatic Cuff Blood Pressure Location Right Upper Arm Position Sitting Respiration 17 Pulse 109 H Pulse Source Monitor Temp 98.1 F Temp Source Temporal Artery Scan Pulse Oximetry (%) 95 Oxygen Delivery Method Room Air Med/Allergies Allergies & Medications Allergies No Known Allergies Allergy (Verified 03/18/25 14:47) Medication Reconciliation ibuprofen 800 mg tablet 800 mg PO Q8HR PRN Pain 05/04/24 [History Confirmed 0 03/18/25] lisinopril 10 mg tablet 10 mg PO QDAY 05/04/24 [History Confirmed 03/18/25] simvastatin 20 mg tablet 20 mg PO DAILY 05/04/24 [History Confirmed 03/18/25] sitagliptin phosphate 50 mg-metformin 1,000 mg tablet (Janumet) 1 tab PO BID 05/04/24 [History Confirmed 03/18/25] acetaminophen 500 mg tablet (Acetaminophen Extra Strength) 1,000 mg (2 x 500 mg) PO Q6H PRN pain #90 tabs 05/06/24 [Rx Confirmed 03/18/25] aspirin 81 mg tablet,delayed release 81 mg PO BID #60 tabs 05/06/24 [Rx Confirmed 03/18/25] doxycycline hyclate 100 mg tablet 100 mg PO BID #14 tabs 05/06/24 [Rx Confirmed 03/18/25] gabapentin 300 mg capsule 300 mg PO .qhs #30 caps 05/06/24 [Rx Confirmed 03/18/25] sennosides 8.6 mg-docusate sodium 50 mg tablet (Senna-S) 1 tab-cap PO QDAY #30 tabs 05/06/24 [Rx Confirmed 03/18/25] metformin 1,000 mg tablet 1,000 mg PO BID 11/10/24 [History Confirmed 03/18/25] semaglutide 1 mg/dose (4 mg/3 mL) subcutaneous pen injector (Ozempic) 1 mg subcut QWEEK 11/10/24 [History Confirmed 03/18/25] acetaminophen 500 mg tablet (Acetaminophen Extra Strength) 1,000 mg (2 x 500 mg) PO Q6H PRN pain #90 tabs 11/13/24 [Rx Confirmed 03/18/25] aspirin 81 mg tablet,delayed release 81 mg PO BID #60 tabs 11/13/24 [Rx Confirmed 03/18/25] doxycycline hyclate 100 mg tablet 100 mg PO BID #14 tabs 11/13/24 [Rx Confirmed 03/18/25] gabapentin 300 mg capsule 300 mg PO .qhs #30 caps 11/13/24 [Rx Confirmed 0 03/18/25] oxycodone 5 mg tablet 5 mg PO Q6H PRN pain #28 tabs 11/13/24 [Rx Confirmed 03/18/25] sennosides 8.6 mg-docusate sodium 50 mg tablet (Senna-S) 1 tab-cap PO QDAY #30 tabs 11/13/24 [Rx Confirmed 03/18/25] Exam Exam Patient is in no acute distress and is cooperative with the examination today. Patient has a normal mood and affect. Breathing is nonlabored. In no respiratory distress. Bilateral extremities were evaluated and demonstrates sensation intact to light touch. Palpable pedal pulses are present. No significant edema is present. Bilateral hip incisions are clean dry and intact. The leg lengths are equal Assessment and Plan Problem List (1) Status post left hip replacement: Status: Acute Plan: Patient is doing well status post Staged bilateral total hip replacements. He is doing well and has minimal pain Plan Patient is doing well and I will see him back in approximately 6 to 12 months For routine follow-up with x-rays Office Procedures GNS Level of Care Nursing/Assessment Patient Status: Established Patient Nursing Assessment/Reassesment: Medication Reconciliation, Update PMH in EMR and Vital Signs Coordination of Care: Complex Care and Chronic Disease 1-5, Education Complex Pt/Fam, Consent,records obtained, informed consent, Results/Orders obtained and Staff clarify orders Established Patient Charge Established Patient Point Assignment: 95 Established Patient Point Charge: EP Level 3 (80-115) MA Intake Visit Data Collection New Patient or Established: Established Patient (seen at [facility] within 3 years) Reason for Visit:: FU RT TKA Seen by Clinical Staff ONLY (RN/MA): No 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 PCP or OBGYN visit in last 3 months: Yes Hx Now: No Do You Feel Safe at Home: Yes Authorities Contacted: N/A Questionairres Past Medical History Past Medical History Have you ever been diagnosed with any of the following: Neurological Problems Seizures: No Cardiology Problems Hypercholesterolemia: Yes Congestive Heart Failure: No Hypertension: Yes Respiratory Problems Chronic Obstructive Pulmonary Disease (COPD): No Sleep Apnea: Yes (Cpap) Smoking: No Smoking Cessation Counseling: No Smoking Exposure: No Tobacco Use: No Clubbing: No Exposure to Respiratory Irritants: No Intubation: No Stomache/Intestinal Problems Diverticulitis: Yes Obesity: Yes Genital/Urinary Problems Renal Disease: No Musculoskeletal Problems Arthritis: Yes Head,Eye,Nose,Throat Problems Cataracts: Yes (right) Endocrine Problems Diabetes Mellitus Type 1: No Diabetes Mellitus Type 2: Yes Other Problems Hospitalization: Yes (surgery colon resection) Shingles: No Blood Transfusions: No Blood Transfusion Reaction: No Anesthesia Reactions: No Chicken Pox: Yes Clostridium Difficile: No Cancer: No Subjective Visit Visit for: knee (RT ) Immunization / Flu Flu Vaccine in the Last 12 Months: No Flu Vaccine Exclusion Criteria: Refused by Patient History of Present Illness Chief complaint: RIGHT HIP POST OP Date of injury / onset of symptoms: 11/11/2024 Bg is a pleasant 49-year-old male who She has had his right total hip replaced 12 weeks ago. This was done in a staged fashion and is very happy. He is not using any assistive device right now. He reports that he feels great and is still working with therapy. Personal History Red flag PMH: none Pain Pain level (0-10): 5 Pain duration: FEW YEARS Pain location: anterior Pain quality: aching Pain timing: increases with activity Associated signs & symptoms: none Ambulatory data Ambulatory device: none Walking distance (minutes): 30 Treatments Number of previous injections: 1 Improvement with previous injections: Yes Number of Physical Therapy sessions: 10 Improvement with PT: Yes Improvement with NSAIDS: n/a Review of Systems Review of Systems: All systems negative unless otherwise noted in HPI.
== END 2025-03-18 14:52 | disposition home or self-care (01) ==
LOC: HODSRG 14:24
PROVIDERS: Supervising Provider Orthopaedic Surgery Adult Reconstructive Orthopaedic Surgery; Visit Provider Orthopaedic Surgery Adult Reconstructive Orthopaedic Surgery
DX: Z96.642 Presence of left artificial hip joint (principal); I10 Essential (primary) hypertension; E78.00 Pure hypercholesterolemia, unspecified; E11.9 Type 2 diabetes mellitus without complications
CPT/HCPCS: 99213; G0463